=== PATIENT | female | born 1980 | race African-American/Black ===

== ENCOUNTER 2017-08-01 17:25 | Emergency (ER) | payer MEDICARE, SELFPAY ==
[~2017-08-01] VITALS: Ht 170.2 cm; Wt 90.9 kg
[2017-08-01] MEDS ORDERED: [UNRECOGNIZED DRUG - CODE] PO (17:44)
[2017-08-01] MEDS ORDERED: HYDR50TA70 PO (17:44)
[2017-08-01] MEDS ORDERED: STOO100C PO (17:44)
[2017-08-01] MEDS ORDERED: LOSA50TA5 PO (17:44)
[2017-08-01] MEDS ORDERED: MIRA3350 PO (20:18)
[2017-08-01 20:30] VITALS: BP 143/66
== END 2017-08-01 20:31 | disposition home or self-care (01) ==
LOC: M ED 17:25
DX: K59.00 Constipation, unspecified (principal); I10 Essential (primary) hypertension; K21.9 Gastro-esophageal reflux disease without esophagitis; Z79.899 Other long term (current) drug therapy